=== PATIENT | female | born 1995 | race African-American/Black ===

== ENCOUNTER 2016-12-31 02:03 | Emergency (ER) | payer MEDICAID ==
[2014-11-30 02:57] VITALS: BMI 22.3
[~2016-12-31 02:03] MED LIST: HYDROCODON-ACE1 EAC7 PO; IBUPROFEN600 MG PO; PRENATAL COMPLE1 TAB PO
== END 2016-12-31 03:10 | disposition home or self-care (01) ==
LOC: D.ER 02:03
DX: S92.342A Displaced fracture of fourth metatarsal bone, left foot, initial encounter for closed fracture (principal); W22.8XXA Striking against or struck by other objects, initial encounter; Y93.89 Activity, other specified; Y92.89 Other specified places as the place of occurrence of the external cause

== ENCOUNTER 2018-04-21 06:16 | Emergency (ER) | payer MEDICAID ==
[~2018-04-21] VITALS: Ht 170.2 cm; Wt 54.4 kg
[2018-04-21 06:22] VITALS: BP 128/89; Ht 170.2 cm; Wt 54.4 kg
[2018-04-21] MEDS ORDERED: NORCO 7.5/325 T1 TA1 PO (07:18)
== END 2018-04-21 08:00 | disposition home or self-care (01) ==
LOC: D.ER 06:16
DX: M25.572 Pain in left ankle and joints of left foot (principal); F17.200 Nicotine dependence, unspecified, uncomplicated

== ENCOUNTER 2019-11-07 11:46 | Emergency (ER) | payer MEDICAID ==
[~2019-11-07 11:46] MED LIST changes: +NORCO 7.5/325 T1 TA1 PO
[2019-11-07 11:48] VITALS: Ht 170.2 cm
[2019-11-07 12:35] LABS: BASOPHILS 1.2 % (0-2); EOSINOPHILS 0.2 % (0-7); HEMATOCRIT 38.3 % (36.0-48.0); HEMOGLOBIN 12.6 g/dL (12-16); LYMPHOCYTES 43.8 % (15-50); MCH 33.1 pg (26.0-34.0); MCHC 32.9 g/dL (31.0-37.0); MCV 100.5 fL (80.0-100.0); MEAN PLATELET VOLUME 8.5 fL (7.4-10.4); MONOCYTES 4.3 % (2-11); NEUTROPHILS 50.5 % (40-80); RBC 3.81 10x6/uL (4.00-5.40); RDW 12.6 % (11.5-14.5); WBC 5.2 10x3/uL (4.8-10.8)
[2019-11-07 12:41] LABS: PLATELET COUNT 339 10x3/uL (130-400)
[2019-11-07 12:44] LABS: APTT 29.2 SECONDS (22.8-39.4); INR 1.11 (0.85-1.17); PROTIME 14.2 SECONDS (11.6-15.0)
[2019-11-07 12:47] LABS: CALC OSMOLALITY 282 mosm/kg (275-300); CALCIUM 8.4 mg/dL (8.5-10.1); CARBON DIOXIDE 26.3 mmol/L (21.0-32.0); CHLORIDE - SERUM 107 mmol/L (98-107); CREATININE - SERUM 0.7 mg/dL (0.6-1.3); GLUCOSE 82 mg/dL (74-106); POTASSIUM - SERUM 3.4 mmol/L (3.5-5.1); SODIUM 143 mmol/L (136-145); UREA NITROGEN 10 mg/dL (7-18); eGFR NON AFRICAN AMERICAN > 90 mL/min (90-120)
[2019-11-07 13:04] LABS: ALBUMIN 3.7 g/dL (3.4-5.0); ALKALINE PHOSPHATASE 87 U/L (30-120); ALT (SGPT) 27 U/L (10-68); BILIRUBIN - TOTAL 0.24 mg/dL (0.2-1.3); CKMB 0.7 U/L (0.0-3.6); CREATINE KINASE 270 UL (21-215); PRO BNP 102 pg/mL (0-125); PROTEIN - SERUM 7.8 g/dL (6.4-8.2)
[2019-11-07 13:07] LABS: TROPONIN-I < 0.017 ng/mL (0.000-0.060)
[2019-11-07 13:36] LABS: BILIRUBIN NEGATIVE (NEGATIVE); GLUCOSE NEGATIVE (NEGATIVE); KETONE NEGATIVE (NEGATIVE); NITRITE NEGATIVE (NEGATIVE); UROBILINOGEN NORMAL (NORMAL)
[2019-11-07 14:14] VITALS: BP 112/68
== END 2019-11-07 14:14 | disposition home or self-care (01) ==
LOC: D.ER 11:46
PROVIDERS: Family Medicine
DX: O26.892 Other specified pregnancy related conditions, second trimester (principal); Z3A.22 22 weeks gestation of pregnancy; E86.0 Dehydration; R05 Cough; E87.6 Hypokalemia; J02.9 Acute pharyngitis, unspecified; Z20.828 Contact with and (suspected) exposure to other viral communicable diseases; R06.02 Shortness of breath